=== PATIENT | female | born 1975 | race African-American/Black ===

== ENCOUNTER 2021-04-01 09:48 | Emergency (ER) | payer BC ==
[~2021-04-01] VITALS: Ht 162.6 cm; Wt 52.2 kg
[2021-04-01 10:50] LABS: BASO # 0.1 x10^3/uL (0.0-0.2); BASO % 1 % (0-3); EOS % 0 % (0-3); HEMATOCRIT 38.4 % (36.0-47.0); HEMOGLOBIN 12.5 g/dL (12.0-15.5); LYMPH # 1.3 x10^3/uL (1.0-4.8); LYMPH % 16 % (24-48); MEAN CORPUSCULAR HEMOGLOBIN 27 pg (25-35); MEAN CORPUSCULAR HGB CONC 33 g/dL (31-37); MEAN CORPUSCULAR VOLUME 83 fL (79-100); MONO # 0.3 x10^3/uL (0.0-1.1); MONO % 3 % (0-9); NEUT # 6.6 x10^3/uL (1.8-7.7); NEUT % 80 % (31-73); PLATELET COUNT 256 x10^3/uL (140-400); RED BLOOD COUNT 4.64 x10^6/uL (3.50-5.40); RED CELL DISTRIBUTION WIDTH 13.6 % (11.5-14.5); WHITE BLOOD COUNT 8.3 x10^3/uL (4.0-11.0)
[2021-04-01 11:03] LABS: CALCIUM 9.4 mg/dL (8.5-10.1); CREATININE 0.7 mg/dL (0.6-1.0); GFR 108.5; POTASSIUM 3.5 mmol/L (3.5-5.1)
[2021-04-01 11:16] LABS: ALBUMIN 4.3 g/dL (3.4-5.0); TOTAL BILIRUBIN 0.5 mg/dL (0.2-1.0); TOTAL PROTEIN 8.4 g/dL (6.4-8.2)
[2021-04-01 11:55] LABS: BILIRUBIN,URINE NEGATIVE (NEG); CLARITY,URINE CLEAR; COLOR,URINE YELLOW; NITRITE,URINE NEGATIVE (NEG); PH,URINE 6.5 (<5.0-8.0); PROTEIN,URINE NEGATIVE (NEG-TRACE); UROBILINOGEN,URINE 0.2 mg/dL (0.2 mg/dL)
--- NOTE | 2021-04-01 12:01 | PHYS DOC ---
Past Medical History Past Surgical History: No Surgical History General Adult EDM: Chief Complaint: ABDOMINAL PAIN HPI: HPI: Patient is a 46 year old female without pertinent past medical history who presents with diarrhea and abdominal cramping. Symptoms been present for the last 6 days. States that she ate "some chicken that the end started to taste like fish." Then a few hours later began having the abdominal cramping. It is periumbilical. Ramps up in waves and then dissipates for long periods of time. Associated with loose/watery stools, once a day in the morning. No mu cus, blood, or melena. No nausea or vomiting. No lasting abdominal pain. She has been drinking lots of Pedialyte, Gatorade, and is eating nonsolids such as yogurt. No fevers or chills. Aside from the chicken noted above, no new or undercooked foods. No recent travel. No recent antibiotics. No dysuria, urgency, frequency, or flank pain. Review of Systems: Review of Systems: Constitutional: Denies fever or chills. [] Eyes: Denies change in visual acuity. [] HENT: Denies nasal congestion or sore throat. [] Respiratory: Denies cough or shortness of breath. [] Cardiovascular: Denies chest pain or edema. [] GI: Reports abdominal cramping and diarrhea. Denies nausea, vomiting, bloody stools. : Denies dysuria. [] Musculoskeletal: Denies back pain or joint pain. [] Integument: Denies rash. [] Neurologic: Denies headache, focal weakness or sensory changes. [] Psychiatric: Denies depression or anxiety. [] Heart Score: C/O Chest Pain: No Allergies: Allergies: Allergies Coded Allergies Type Severity Reaction Last Updated Verified No Known Drug Allergies 04/01/21 No Physical Exam: PE: Constitutional: Well-appearing, no distress HENT: Normocephalic, atraumatic Neck: Normal range of motion, no tenderness, supple, no stridor. [] Cardiovascular:Heart rate regular rhythm, no murmur [] Lungs & Thorax: Bilateral breath sounds clear to auscultation [] Abdomen: Hyperactive bowel sounds, audible without stethoscope. Soft. No tenderness to deep palpation. Skin: Warm, dry, no erythema, no rash. [] Back: No tenderness, no CVA tenderness. [] Extremities: No tenderness, no cyanosis, no clubbing, ROM intact, no edema. [] Neurologic: Alert and oriented X 3, normal motor function, normal sensory function, no focal deficits noted. [] Psychologic: Affect normal, judgement normal, mood normal. [] Current Patient Data: Labs: Laboratory Tests Test 04/01/21 10:35 04/01/21 11:35 White Blood Count 8.3 x10^3/uL (4.0-11.0) Red Blood Count 4.64 x10^6/uL (3.50-5.40) Hemoglobin 12.5 g/dL (12.0-15.5) Hematocrit 38.4 % (36.0-47.0) Mean Corpuscular Volume 83 fL (79-100) Mean Corpuscular Hemoglobin 27 pg (25-35) Mean Corpuscular Hemoglobin Concent 33 g/dL (31-37) Red Cell Distribution Width 13.6 % (11.5-14.5) Platelet Count 256 x10^3/uL (140-400) Neutrophils (%) (Auto) 80 % (31-73) H Lymphocytes (%) (Auto) 16 % (24-48) L Monocytes (%) (Auto) 3 % (0-9) Eosinophils (%) (Auto) 0 % (0-3) Basophils (%) (Auto) 1 % (0-3) Neutrophils # (Auto) 6.6 x10^3/uL (1.8-7.7) Lymphocytes # (Auto) 1.3 x10^3/uL (1.0-4.8) Monocytes # (Auto) 0.3 x10^3/uL (0.0-1.1) Eosinophils # (Auto) 0.0 x10^3/uL (0.0-0.7) Basophils # (Auto) 0.1 x10^3/uL (0.0-0.2) Sodium Level 142 mmol/L (136-145) Potassium Level 3.5 mmol/L (3.5-5.1) Chloride Level 104 mmol/L (98-107) Carbon Dioxide Level 28 mmol/L (21-32) Anion Gap 10 (6-14) Blood Urea Nitrogen 7 mg/dL (7-20) Creatinine 0.7 mg/dL (0.6-1.0) Estimated GFR (Cockcroft-Gault) 108.5 BUN/Creatinine Ratio 10 (6-20) Glucose Level 142 mg/dL (70-99) H Calcium Level 9.4 mg/dL (8.5-10.1) Total Bilirubin 0.5 mg/dL (0.2-1.0) Aspartate Amino Transferase (AST) 27 U/L (15-37) Alanine Aminotransferase (ALT) 19 U/L (14-59) Alkaline Phosphatase 44 U/L (46-116) L Total Protein 8.4 g/dL (6.4-8.2) H Albumin 4.3 g/dL (3.4-5.0) Albumin/Globulin Ratio 1.0 (1.0-1.7) Lipase 144 U/L (73-393) POC Urine HCG, Qualitative Hcg negative (Negative) Laboratory Tests 04/01/21 10:35 Laboratory Tests 04/01/21 10:35 Vital Signs: Vital Signs Date Time Temp Pulse Resp B/P (MAP) Pulse Ox O2 Delivery O2 Flow Rate FiO2 04/01/21 10:11 98.6 104 16 143/85 (104) 99 Room Air 98.6 EKG: EKG: [] Radiology/Procedures: Radiology/Procedures: [] Course & Med Decision Making: Course & Med Decision Making Pertinent Labs and Imaging studies reviewed. (See chart for details) Patient 46-year-old female who presents with 6 days of intermittent abdominal cramping and loose stools. On arrival is afebrile, hemodynamically stable. Well-appearing on exam. Benign abdominal exam. No high fevers, or bloody/mucus stools. Do not feel that she requires antibiotics. No recent antibiotic usage, and only 1 stool per day, doubt C. difficile. Electrolytes, kidney function, LFTs normal. negative. Seems to be consistent with a non-bacterial diarrheal illness. No indication of inflammatory bowel disease. Benign abdomen do not feel imaging would be beneficial. Could be viral illness, IBS, food intolerance. Discussed sparing usage of loperamide. Pt safe for discharge at this time. Dragon Disclaimer: Dragon Disclaimer: This electronic medical record was generated, in whole or in part, using a voice recognition dictation system. Departure Departure Impression: Primary Impression: Diarrhea Disposition: 01 HOME / SELF CARE / HOMELESS Condition: STABLE Referrals: THOMAS RAMSEY (PCP) Please schedule follow-up appointment if your symptoms persist. Patient Instructions: Diarrhea Additional Instructions: Your labs are very reassuring today. There are several things that could be causing your diarrhea, but most of them will get better on their own. If this persist please follow-up with your primary care doctor. If you develop high fevers, shaking chills, constant abdominal pain, bloody stools or other new/concerning symptoms you can always return to the emergency department for reevaluation. Please advance your diet slowly reintroducing bland solid foods. The lack of solid foods may be contributing to your watery stools. You can try taking the loperamide 2 mg. Please follow package insert. Do not take more than 16 mg/day. KAITLIN VAZQUEZ MD Apr 01, 2021 12:01
[2021-04-01 12:07] LABS: BACTERIA,URINE 0 /HPF (0-FEW); RBC,URINE 0 /HPF (0-2); WBC,URINE 0 /HPF (0-4)
[2021-04-01 12:48] VITALS: BP 126/83
== END 2021-04-01 13:01 | disposition home or self-care (01) ==
LOC: ER 09:48
DX: R19.7 Diarrhea, unspecified (principal); R10.33 Periumbilical pain
CPT/HCPCS: 36415; 80053; 81001; 81025; 83690; 85025; 99285-25